=== PATIENT | male | born 1990 | race Caucasian/White ===

== ENCOUNTER 2020-06-17 18:50 | Emergency (ER) | payer OTHER ==
[~2020-06-17] VITALS: Ht 188 cm; Wt 100.0 kg
[2020-06-17 18:58] VITALS: BP 135/83
[2020-06-17] MEDS ORDERED: ibuprofen tablet 400 MG TABLET PO ONE (19:15)
[2020-06-17] MEDS ORDERED: IBUP-1984 PO (19:17)
[2020-06-17] MEDS ORDERED: CYCL-1 PO (19:17)
== END 2020-06-17 19:32 | disposition home or self-care (01) ==
LOC: ER 18:50
DX: S16.1XXA Strain of muscle, fascia and tendon at neck level, initial encounter (principal); S39.012A Strain of muscle, fascia and tendon of lower back, initial encounter; Z79.899 Other long term (current) drug therapy; V89.2XXA Person injured in unspecified motor-vehicle accident, traffic, initial encounter; Y93.89 Activity, other specified; Y92.488 Other paved roadways as the place of occurrence of the external cause; Y99.8 Other external cause status
CPT/HCPCS: 99283

== ENCOUNTER 2022-10-10 10:18 | Emergency (ER) | payer SELFPAY ==
[~2022-10-10] VITALS: Ht 188 cm; Wt 106.5 kg
[~2022-10-10 10:18] MED LIST: CYCL-1 PO
[2022-10-10 10:33] LABS: BASOPHILS # (AUTO) 0.1 X10'3 (0-0.2); EOSINOPHILS # (AUTO) 0.2 X10'3 (0-0.9); EOSINOPHILS % (AUTO) 2.9 % (0-6); HEMOGLOBIN 16.1 g/dl (14.0-17.9); LYMPHOCYTES % (AUTO) 33.5 % (21-51); MEAN CORPUSCULAR HEMOGLOBIN 29.6 PG (27.0-31.0); MEAN CORPUSCULAR HGB CONC 33.5 g/dL (33.0-36.5); MEAN CORPUSCULAR VOLUME 88.4 FL (78-98); MONOCYTES # (AUTO) 0.5 X10'3 (0-0.9); MONOCYTES % (AUTO) 7.7 % (2-12); NEUTROPHILS # (AUTO) 3.2 X10'3 (1.8-7.7); NEUTROPHILS % (AUTO) 54.9 % (42-75); PLATELET COUNT 209 X10'3 (140-440); RED BLOOD COUNT 5.44 X10'6 (4.70-6.10); RED CELL DISTRIBUTION WIDTH 12.7 % (11.5-14.5); WHITE BLOOD COUNT 5.9 X10'3 (4.5-11.0)
[2022-10-10 10:48] LABS: ALANINE AMINOTRANSFERASE 46 U/L (12-78); ALBUMIN 4.1 G/DL (3.4-5.0); ALBUMIN/GLOBULIN RATIO 1.3 (1.1-1.5); ALKALINE PHOSPHATASE 52 IU/L (46-116); ANION GAP 12 (8-16); ASPARTATE AMINO TRANSFERASE 26 U/L (10-37); BILIRUBIN,TOTAL 0.7 MG/DL (0.1-1.0); BLOOD UREA NITROGEN 11 MG/DL (7-18); BUN/CREATININE RATIO 10.5 (5.4-32.0); CALCIUM 9.4 MG/DL (8.5-10.1); CHLORIDE 105 MMOL/L (99-107); CREATININE 1.05 MG/DL (0.60-1.10); GLUCOSE 95 MG/DL (70-104); POTASSIUM 3.9 MMOL/L (3.5-5.1); SODIUM 141 MMOL/L (135-145); TOTAL CARBON DIOXIDE 24.5 MMOL/L (24-32); TOTAL PROTEIN 7.2 G/DL (6.4-8.2); eGFR 81 ML/MIN
[2022-10-10 10:56] LABS: MAGNESIUM 2.1 MG/DL (1.5-2.4)
== END 2022-10-10 19:28 | disposition left against medical advice (07) ==
LOC: ER 10:19
DX: R07.9 Chest pain, unspecified (principal); Z53.21 Procedure and treatment not carried out due to patient leaving prior to being seen by health care provider
CPT/HCPCS: 36415; 80053; 83735; 83880; 84484; 85025; 93005